=== PATIENT | female | born 1990 | race Caucasian/White ===

== ENCOUNTER 2019-08-12 13:30 | Inpatient (IN) | payer BC ==
[2019-12-02] MEDS ORDERED: Buffered Lidocaine 1% SYRIN 1 ml INTRADERM ONE (06:00)
[2019-12-02] MEDS ORDERED: Lactated Ringers 1000 ml BAG 1,000 ML IV SCH (06:00)
[2019-12-02] MEDS ORDERED: Midazolam 2 mg/2 ml VIAL 1 mg/ml 2 ml VIAL (2 mg) ONE (09:19)
[2019-12-02] MEDS ORDERED: fentaNYL 100 mcg/2 ml 50 MCG/ML VIAL ONE ×3 (09:19→13:29)
[2019-12-02] MEDS ORDERED: ceFAZolin 2 GM PREMIX 2 GM/50 ML BAG ONE (09:42)
[2019-12-02] MEDS ORDERED: ceFAZolin 1 GM ADVAN 1 GM ADDV.VIAL IVPB ONE (09:42)
[2019-12-02] MEDS ORDERED: Heparin 5000 UNITS/ML 1 mL VIAL ONE (09:42)
[2019-12-02] MEDS ORDERED: Bupivacaine 0.25% EPI 200,000 30 ML SDV ONE (10:04)
[2019-12-02] MEDS ORDERED: Naloxone 0.4 mg VIAL 0.4 mg/ml 1 ml VIAL IV PRN (10:27)
[2019-12-02] MEDS ORDERED: Rocuronium 50 mg VIAL 10 mg/ml 5 ml VIAL (50 mg) ONE (10:38)
[2019-12-02] MEDS ORDERED: Methylene Blue 0.5 % 50 MG/10 ML AMP IV ONE (10:50)
[2019-12-02] MEDS ORDERED: Lidocaine 2% PF 5 ML VIAL ONE (11:04)
[2019-12-02] MEDS ORDERED: Propofol 10 MG/ML 20 ML BTL ONE (11:04)
[2019-12-02] MEDS ORDERED: Dexamethasone IV 4 MG/ML VIAL 1 ml VIAL ONE (11:04)
[2019-12-02] MEDS ORDERED: Glycopyrrolate IV 0.2 MG/ML 1 ML VIAL ONE (11:06)
[2019-12-02] MEDS ORDERED: Ondansetron 4 mg VIAL 2 MG/ML 2 ml VIAL ONE (13:16)
[2019-12-02] MEDS ORDERED: Ondansetron 4 mg VIAL 2 MG/ML 2 ml VIAL IV PRN (13:30)
[2019-12-02] MEDS ORDERED: HYDROcodone/ACET. 7.5/325 LIQ 15 ML UDC PO PRN (13:30)
[2019-12-02] MEDS ORDERED: HYDROmorphone 0.5 MG/0.5 ML SYRINGE IV SLOW PU PRN (13:30)
[2019-12-02] MEDS ORDERED: HYDROmorphone 1 MG/1 ML SYRINGE IV SLOW PU PRN (13:41)
[2019-12-02] MEDS ORDERED: Haloperidol 5 mg/ml SDV IV/IM 5 MG/ML AMP ONE (13:54)
[2019-12-02] MEDS ORDERED: HYDROmorphone 1 MG/1 ML SYRINGE ONE ×2 (14:00→14:30)
[2019-12-02] MEDS: HYDROmorphone 1 MG/1 ML SYRINGE IV PRN ×2 (14:00→14:12)
[2019-12-02] MEDS: Lactated Ringers 1000 ml BAG 1,000 ML IV SCH ×2 (15:07→22:18)
[2019-12-02] MEDS: Heparin 5000 UNITS/ML 1 mL VIAL SUBCUT SCH ×2 (16:42→22:24)
[2019-12-02] MEDS: Famotidine IV 10 MG/ML 2 ml VIAL (20 mg) IV SLOW PU SCH (20:09)
[2019-12-02] MEDS ORDERED: Prochlorperazine 5 mg/ml 2 ml VIAL (10 mg) IV PRN (20:10)
[2019-12-03] MEDS: Lactated Ringers 1000 ml BAG 1,000 ML IV SCH (05:18)
[2019-12-03] MEDS: Heparin 5000 UNITS/ML 1 mL VIAL SUBCUT SCH ×2 (05:57→14:26)
[2019-12-03] MEDS: Famotidine IV 10 MG/ML 2 ml VIAL (20 mg) IV SLOW PU SCH (09:08)
[2019-12-03] MEDS ORDERED: ETONOGESTREL 68 MG INTRADERM SCH (09:30)
[2019-12-03] MEDS ORDERED: D5W 1/2 NS KCl 20 meq 1000 ml 1,000 ML IV SCH (14:00)
[2019-12-03 22:01] VITALS: BP 155/65
[2019-12-05] MEDS ORDERED: Scopolamine PATCH Remove NOTE PATCH OFF ONE (21:00)
== END 2019-12-03 22:10 | disposition home or self-care (01) | DRG 403 ==
LOC: AA 12-02 09:25 → SSU 12-02 13:31
PROVIDERS: ADMIT Surgery; ATTEND Surgery